=== PATIENT | male | born 1945 | race Hispanic/Latino ===

== ENCOUNTER 2016-10-03 06:33 | Emergency (ER) | payer MEDICARE ==
[2016-10-03 06:51] VITALS: RESP 18; TEMP 98.4; O2SAT 97
--- NOTE | 2016-10-03 07:38 | C.PDOC ---
History Of Present Illness 71 y/o male, whose PMHx includes Diabetes, HTN, Hypercholesterolemia, CAD, and coronary stent, presents to the ED complaining of intermittent palpitations " for weeks." He states that he decided to come to the ED because it was worse today. Patient notes that his section hand helper is Dr. Ly. He denies smoking cigarettes, chest pain, shortness of breath, nausea, vomiting, fever, chills, or other complaints. Time Seen by Provider: 10/03/16 07:23 Chief Complaint (Nursing): Palpitations History Per: Patient History/Exam Limitations: no limitations Onset/Duration Of Symptoms: Days ("for weeks"), Gradual, Persistent, Worse Since (today) Current Symptoms Are (Timing): Still Present Recent travel outside of the [place]: No Past Medical History Reviewed: Historical Data, Nursing Documentation, Vital Signs Vital Signs: Last Vital Signs Temp 98.4 F 10/03/16 06:44 Pulse 65 10/03/16 08:59 Resp 18 10/03/16 08:59 BP 121/62 10/03/16 08:59 Pulse Ox 97 10/03/16 08:59 - Medical History PMH: CAD, Diabetes, HTN, Hypercholesterolemia Other Surgeries: one cardiac stent [place] [address] ly,, right coronary artery - [facility] Procedures ENDOSC POLYPECTOMY OF LG INTEST (04/17/06) Family History: States: No Known Family Hx - Social History Hx Tobacco Use: No Hx Alcohol Use: No Hx Substance Use: No - Immunization History Hx Tetanus Toxoid Vaccination: No Hx Influenza Vaccination: Yes Hx Pneumococcal Vaccination: Yes Review Of Systems Except As Marked, All Systems Reviewed And Found Negative. Constitutional: Negative for: Fever, Chills Cardiovascular: Positive for: Palpitations. Negative for: Chest Pain Respiratory: Negative for: Shortness of Breath Gastrointestinal: Negative for: Nausea, Vomiting Physical Exam - Physical Exam Appears: Non-toxic, No Acute Distress Skin: Normal Color, Warm, Dry Head: Atraumatic, Normacephalic Eye(s): bilateral: Normal Inspection, PERRL Oral Mucosa: Moist Neck: Normal ROM, Supple Chest: Symmetrical, No Tenderness Cardiovascular: Rhythm Regular, No Edema Respiratory: Normal Breath Sounds, No Rales, No Rhonchi, No Wheezing Gastrointestinal/Abdominal: Normal Exam, Soft, No Tenderness Back: Normal Inspection, No CVA Tenderness Extremity: Normal ROM, No Calf Tenderness, No Swelling Neurological/Psych: Oriented x3, Normal Speech, Normal Cognition ED Course And Treatment - Laboratory Results Result Diagrams: 10/03/16 07:52 10/03/16 07:52 Lab Interpretation: No Acute Changes ECG: Interpreted By Me ECG Rhythm: Sinus Rhythm ECG Interpretation: No Acute Changes Rate From EC (bpm) O2 Sat by Pulse Oximetry: 97 (ra) Pulse Ox Interpretation: Normal - Radiology CXR: Interpreted by Me CXR Interpretation: Yes: No Acute Disease Progress Note: On re-evaluation lungs clear in no distress. Patient advised to follow up with Dr Ly for further evaluation Reassessment Condition: Unchanged Medical Decision Making Medical Decision Making: Plan: * EKG * CXR * Labs Disposition Counseled Patient/Family Regarding: Studies Performed, Diagnosis, Need For Followup - Disposition Referrals: Rodrigo Lyn MD [Primary Care Provider] - Henrik Ly MD [Staff Provider] - Disposition: HOME/ ROUTINE Disposition Time: 09:00 Condition: STABLE Additional Instructions: Follow up with your PMSD and section hand helper for further evaluation Instructions: Palpitations (ED) - POA Present On Arrival: None - Clinical Impression Clinical Impression: Palpitations - PA / NONPROFIT DIRECTOR / Resident Statement MD/DO has reviewed & agrees with the documentation as recorded. - Scribe Statement The provider has reviewed the documentation as recorded by the Scribe (Corrie Cummings) All medical record entries made by the Scribe were at my direction and personally dictated by me. I have reviewed the chart and agree that the record accurately reflects my personal performance of the history, physical exam, medical decision making, and the department course for this patient. I have also personally directed, reviewed, and agree with the discharge instructions and disposition.
[2016-10-03 07:55] LABS: RBC URINE < 1 /hpf (0-3); URINE BILIRUBIN NEGATIVE (NEGATIVE); URINE BLOOD NEGATIVE (NEGATIVE); URINE COLOR Yellow (YELLOW); URINE GLUCOSE (UA) 1+ mg/dL (Normal); URINE KETONE NEGATIVE (NEGATIVE); URINE LEUKOCYTE ESTERASE NEG Leu/uL (Negative); URINE PROTEIN NEGATIVE (NEGATIVE); URINE UROBILINOGEN NORMAL mg/dL (0.2-1.0); WBC URINE 1 /hpf (0-5)
[2016-10-03 08:03] LABS: BASO # 0.1 K/uL (0.0-0.2); BASO % 1.2 % (0.0-2.0); EOS # 0.4 K/uL (0.0-0.7); EOS % 7.2 % (0.0-4.0); HEMATOCRIT 40.3 % (35.0-51.0); LYMPH # 1.3 K/uL (1.0-4.3); LYMPH % 23.3 % (20.0-40.0); MEAN CELL VOLUME 89.5 fL (80.0-94.0); MEAN CORPUSCULAR HEMOGLOBIN 29.9 pg (27.0-31.0); MEAN CORPUSCULAR HGB CONC 33.4 g/dL (33.0-37.0); MEAN PLATELET VOLUME 7.5 fL (7.2-11.7); MONO # 0.5 K/uL (0.0-0.8); MONO % 9.2 % (0.0-10.0); RED CELL DISTRIBUTION WIDTH 13.7 % (11.5-14.5); WHITE BLOOD COUNT 5.7 K/uL (4.8-10.8)
[2016-10-03 08:07] LABS: CHLORIDE 101 mmol/L (98-107); POTASSIUM 4.3 mmol/L (3.6-5.2); SODIUM 139 mmol/L (132-148)
[2016-10-03 08:09] LABS: ALB/GLOB RATIO 1.1 (1.0-2.1); ALKALINE PHOSPHATASE 54 U/L (38-126); AST/SGOT 39 U/L (17-59); BILIRUBIN,TOTAL 0.6 mg/dL (0.2-1.3); CARBON DIOXIDE 25 mmol/L (22-30); GFR AFRICAN-AMERICAN > 60; TOTAL PROTEIN 7.2 g/dL (6.3-8.3)
[2016-10-03 08:10] LABS: ALT/SGPT 59 U/L (21-72); BLOOD UREA NITROGEN 13 mg/dL (9-20); GLUCOSE,RANDOM 198 mg/dL (75-110)
[2016-10-03 08:11] LABS: CALCIUM 8.8 mg/dl (8.6-10.4)
[2016-10-03 08:59] VITALS: BP 121/62; PULSE 65
--- NOTE | 2016-10-03 11:53 | RAD ---
HISTORY: Detox/Psy COMPARISON: No prior. TECHNIQUE: Chest PA and lateral FINDINGS: LUNGS: No active pulmonary disease. PLEURA: No significant pleural effusion identified. No pneumothorax apparent. CARDIOVASCULAR: Normal. OSSEOUS STRUCTURES: No significant abnormalities. VISUALIZED UPPER ABDOMEN: Normal. OTHER FINDINGS: None. IMPRESSION: No active disease.
--- NOTE | 2016-10-03 14:06 | CARD ---
APPROVED REPORT EKG Measurement Heart [id number] <Conclusion> Normal sinus rhythm Left axis deviation Abnormal ECG
== END 2016-10-03 09:04 | disposition home or self-care (01) ==
LOC: SUPCPDRO 06:33 → C.ER 06:33
DX: R00.2 Palpitations (principal)

== ENCOUNTER 2016-11-22 10:12 | Day surgery (SDC) | payer MEDICARE ==
[2016-11-22 10:32] VITALS: BMI 32.4
[2016-11-22] MEDS ORDERED: cefTRIAXone IV 1 gm in Dextros 50 ML IVPB ONE (11:05)
[2016-11-22] MEDS ORDERED: Propofol 10 mg/ml Inj (20 ML) ONE (11:11)
[2016-11-22] MEDS ORDERED: Midazolam 2 MG/2 ML VIAL ONE (11:12)
[2016-11-22] MEDS ORDERED: Sodium Chloride 0.9% 500 ML IV ONE ×2 (11:20→12:30)
[2016-11-22] MEDS: Iohexol 240 (50 ml) ONE ×2 (11:30→11:59)
[2016-11-22] MEDS ORDERED: Acetaminophen-Codeine 300/30 mg Tab PO PRN (11:41)
[2016-11-22] MEDS ORDERED: Lidocaine 2% Jelly (Uro-Jet) ONE (12:01)
[2016-11-22] MEDS ORDERED: Gentamicin 80 mg in 0.9% NS 80 MG/100 ML BAG IVPB SCH (13:00)
[2016-11-22 13:30] VITALS: TEMP 97.9; O2SAT 100
[2016-11-22 15:05] VITALS: BP 124/60; PULSE 77; RESP 20
--- NOTE | 2016-11-22 16:55 | RAD ---
HISTORY: HEMATURIA COMPARISON: No prior. FINDINGS: BOWEL: Normal. No obstruction. No free air. BONES: Normal. OTHER FINDINGS: Bilateral retrograde performed by Dr. 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 No hydronephrosis gross filling defects appreciated. Ureters are normal in course and caliber without apparent filling defects. Cyn the tooth shows little contrast in the bladder with the cystoscope in place Image number 3 shows partial drainage of the contrast from the collecting systems and minimal residual contrast within the bladder. IMPRESSION: Bilateral retrograde -findings as above
--- NOTE | 2016-12-10 11:43 | HP ---
UROLOGY ADMISSION REASON FOR ADMISSION: Treatment of workup of hematuria, voiding dysfunction. This is an extremely pleasant 71-year-old gentleman who is here for workup for hematuria. We discuss ed options, risks, benefits and alternatives and workup and diagnostic studies, and he is here now to day to come to the hospital to get anesthesia for a cysto and a retrograde . PAST MEDICAL AND SURGICAL HISTORY: As listed, otherwise unremarkable. He has a history of a right h ip surgical procedure. No history of an NV or CVA. SOCIAL HISTORY: Essentially unremarkable. REVIEW OF SYSTEMS: Listed above. No weight loss, chest pain or shortness of breath. MEDICATIONS: See chart. ALLERGIES: PHYSICAL EXAMINATION: GENERAL: Well-nourished male, in no apparent signs . ABDOMEN: Soft, nontender. No flank mass appreciated. GENITALIA: Normal male phallus without discharge. No testicular masses. RECTAL: A 30 gram prostate, soft and smooth. DIAGNOSES: Voiding dysfunction, decreased force of stream, enlarged prostate, irritative and obstruc tive complaints, hematuria. ASSESSMENT AND PLAN: In summary, a very pleasant gentleman with the above history. Discussed option s with the patient. workup versus coming here. He is here today for a cysto and a retrograde pyelogram. We discussed options, risks, benefits and alternatives. The plan is as follows: We are going to give the patient antibiotic prophylaxis, the patient will be taken to the OR for his anesthesia and his cystoscopy and retrograde pyelogram and then further plan s will follow. Albert Addison MD cc: [id number] TT: 12/09/2016 17:53:21 [email or web address]
--- NOTE | 2016-12-11 07:46 | OP ---
PROCEDURE DATE: 11/22/2016 PREOPERATIVE DIAGNOSES: Hematuria, voiding dysfunction, decreased flow of stream, nocturia, irritati ve and obstructive complaints, and hematuria. POSTOPERATIVE DIAGNOSES: Hematuria, voiding dysfunction, decreased flow of stream, nocturia, irritat jeffrey and obstructive complaints, and hematuria. PROCEDURE: Cystoscopy, bilateral retrograde pyelogram. SURGEON: Dr. Albert Addison. COMPLICATIONS: None. BLOOD LOSS: Less than 50 mL. FINDINGS: Normal enlarged prostate, no urethral strictures, visually occlusive prostate about 3 cm i n length. No bladder tumors or cancers and the upper tracts are essentially within normal limits. INDICATIONS: See history and physical. This is a very pleasant gentleman, 71-year-old, voiding dysf unction, stream, plus/minus on taking medications after discussing options for workup and treat ment including office checks. He is here now for the above procedure. PROCEDURE: After obtaining informed consent, the patient was placed on the table, routine monitors p laced, timeouts were called to confirm the patient, the positioning, etc. I do want to mention that we told the patient this is just diagnostic studies; no surgery is going on. Procedure continues with the cystoscope via urethra. Entry was normal is visually occlusive. It is actually fairly large 3-4 cm in length. The ureteral orifice was entered and retrograde pyelog jeffery were performed bilaterally. The films were submitted to the radiologist to read. But to my eye, there is no bladder cancer or filling defects, stones disease or the like. The patient's bladder was emptied and the cystoscope was removed. A rectal exam shows a 30 gram plus prostate, soft and smooth. The patient tolerated the procedure well without complication. My recommendation would be to follow him. Depending on how the patient has irritative and obstructiv e complaints, to offer the patient minimally invasive therapy such as microwave and resume and a UroL ift or even consider a PVP GreenLight laser. I have discussed with the patient multiple times. We will have to see what he wants and then further plans will follow depending on the patient. Albert Addison MD cc: [id number] TT: 12/09/2016 18:26:19 [place]n
== END 2016-11-22 14:30 | disposition home or self-care (01) ==
LOC: C.SDS 10:12
PROVIDERS: ATTEND Urology
DX: N40.1 Benign prostatic hyperplasia with lower urinary tract symptoms (principal); R35.1 Nocturia; R39.12 Poor urinary stream
CPT/HCPCS: 52005; 74022; 82948; C1758; J0696; J1580; J7040; Q9966